=== PATIENT | female | born 1985 | race Two or more races ===

== ENCOUNTER 2023-09-18 15:29 | Emergency (ER) | payer OTHER ==
[~2023-09-18] VITALS: Ht 154.9 cm; Wt 59.0 kg
[2023-09-18 18:57] LABS: HEMATOCRIT 37.1 % (36.0-45.00); HEMOGLOBIN 12.8 g/dL (12.0-15.00); MEAN CELL VOLUME 89.8 fL (80.00-100.00); MEAN CORPUSCULAR HGB CONC 34.5 g/dl (32.0-36.0); PLATELET COUNT 241 K/uL (150-450); RED BLOOD COUNT 4.13 M/uL (4.00-6.00); RED CELL DISTRIBUTION WIDTH 13.1 % (11.5-14.5)
[2023-09-18 19:06] LABS: PH,URINE 5.5 (5.0-8.0); URINE APPEARANCE Clear; URINE BILIRRUBIN Negative (NEGATIVE); URINE BLOOD Negative; URINE COLOR Yellow; URINE GLUCOSE Negative (NEGATIVE); URINE LEUKOCYTE Negative; URINE NITRATE Negative; URINE PROTEIN Negative (NEGATIVE)
[2023-09-18 19:07] LABS: URINE RBC 9.7 uL (0.0-20.8); URINE WBC 4.9 uL (0.0-23.2)
[2023-09-18 19:10] LABS: CALCIUM 9.2 mg/dL (8.5-10.1); CREATININE SERUM 0.65 mg/dL (0.55-1.02); GFR 101.47; POTASSIUM 3.97 mEq/L (3.5-5.1)
[2023-09-18] MEDS ORDERED: ORPHENADRINE CITRATE 30 MG/ML AMPUL IM STA (20:02)
== END 2023-09-18 20:47 | disposition home or self-care (01) ==
LOC: ER 15:30
PROVIDERS: General Practice
DX: M54.50 Low back pain, unspecified (principal); Z88.6 Allergy status to analgesic agent